=== PATIENT | female | born 1970 | race Caucasian/White ===

== ENCOUNTER 2017-08-21 16:11 | Emergency (ER) | payer OTHER ==
[~2017-08-21] VITALS: Ht 157.5 cm; Wt 67.6 kg
[2017-08-21] MEDS ORDERED: ESZO3TAB27 PO (17:00)
[2017-08-21] MEDS ORDERED: ALBUTEROL (17:00)
[2017-08-21] MEDS ORDERED: [UNRECOGNIZED DRUG - CODE] PO (17:00)
[2017-08-21] MEDS ORDERED: LAMO200T2 PO (17:00)
[2017-08-21] MEDS ORDERED: VORT5TAB PO (17:00)
[2017-08-21] MEDS ORDERED: LEVO50TA8 PO (17:00)
--- NOTE | 2017-08-21 17:27 | NUR ---
DR HARRIS AT THE BEDSIDE FOR EVAL AND EXAM.
[2017-08-21] MEDS ORDERED: IPRATROPIUM BROMIDE 0.5 MG/2.5 ML NEBU NEB ONE (17:45)
[2017-08-21] MEDS ORDERED: ALBUTEROL SULFATE 2.5 MG/3 ML NEBU NEB ONE (17:45)
[2017-08-21] MEDS ORDERED: predniSONE 10 MG TABLET PO ONE (17:45)
[2017-08-21] MEDS ORDERED: predniSONE 10 MG TABLET ONE (17:51)
[2017-08-21] MEDS ORDERED: predniSONE 50 MG TABLET ONE (17:51)
[2017-08-21] MEDS ORDERED: IPRATROPIUM BROMIDE 0.5 MG/2.5 ML NEBU ONE (18:10)
[2017-08-21] MEDS ORDERED: ALBUTEROL SULFATE 2.5 MG/3 ML NEBU ONE (18:10)
--- NOTE | 2017-08-21 19:10 | NUR ---
CARE ENDORED TO KEYSHAWN RICHARD.
--- NOTE | 2017-08-21 19:17 | NUR ---
Received report from HILARY Khalil. Assumed care of pt at this time. Pt resting in position of comfort for self.
--- NOTE | 2017-08-21 20:10 | NUR ---
Patient discharged to home in stable conditon. Written and verbal after care instructions given. Patient verbalizes understanding of instructions.
[2017-08-21 20:11] VITALS: BP 112/85
== END 2017-08-21 20:12 | disposition home or self-care (01) ==
LOC: ER 16:12
DX: J45.909 Unspecified asthma, uncomplicated (principal); Z88.0 Allergy status to penicillin; Z88.2 Allergy status to sulfonamides; Z91.040 Latex allergy status
CPT/HCPCS: A4663; J3590; J7512